=== PATIENT | male | born 1975 | race Caucasian/White ===

== ENCOUNTER 2023-01-29 17:24 | Emergency (ER) | payer BC, SELFPAY ==
[2023-01-29 17:30] VITALS: BP 162/104; PULSE 93; RESP 16; TEMP 36.9; O2SAT 99
--- NOTE | 2023-01-29 17:30 | DI.RAD_ITS ---
Exam(s) XR SHOULDER RT COMPLETE 2+V EXAM: XR SHOULDER RT COMPLETE 2+V CLINICAL HISTORY: shoulder injury, ac deformity. TECHNIQUE: 2D digital imaging was performed. Five views. COMPARISON: No exams were available for comparison FINDINGS: BONES: No acute fracture is present. No bony destructive lesion is seen. JOINTS: Distal clavicle projects superior to the acromion, indicating acromioclavicular joint separat ion. Glenohumeral joint is intact. Widening of the coracoacromial distance. SOFT TISSUE: Normal. IMPRESSION: Acromioclavicular joint separation. DATA REPOSITORY: RADIATION DOSE DELIVERED:
--- NOTE | 2023-01-29 17:35 | W.ED.GENAD ---
Discharge Plan Disposition Patient Disposition: Home Discharge Details Clinical Impression: Acromioclavicular joint separation, type 3 ED Provider: Kelsea Zafar Home Meds and New Rx's Prescriptions: New oxycodone 5 mg capsule 5 mg PO Q6H PRNQty: 10 0RF Continued [place]'s wort 300 mg Tablet 300 mg PO DAILY Discharge Instructions Additional Instructions: Take ibuprofen 600 mg every 8 hours with food Take Tylenol 650 mg every 4-6 hours If you need prescription for oxycodone, this is addictive, use sparingly Do not operate your vehicle for 8 hours after taking this medication Wear your sling Limit use of your right shoulder Monitor the skin for any signs of bruising and be reassessed if you notice this, should you develop strength or sensation change, worsening pain, or with any new or progressing symptoms return immediately Call orthopedics tomorrow if you do not hear from them the day to schedule appointment Stand Alone Forms: Work Release Referrals: Orville Lanier MD [ [facility] STAFF PHYSICIAN] - Medical Decision Making 47-year-old male with ski injury, isolated right shoulder injury X-ray was ordered for further evaluation which shows a grade 3 AC joint separation, mild tenting of the skin, no ecchymosis over area, no open fracture, neurovascularly intact, no additional evidence of trauma, fully alert and oriented Case discussed with Dr. Lanier, will see patient in close outpatient setting Placed in sling and placed on follow-up list Remains neurovascularly intact Small amount of oxycodone supplied Work note supplied Return precautions reviewed in detail including immediate return with skin discoloration Medical Records Medical records reviewed: Yes I reviewed the patient's medical records. Lab Data Lab results reviewed: Yes I reviewed the patient's lab results. HPI General Date/Time Provider Initiated Documentation: 01/29/23 17:30. HPI Narrative: This 47-year-old gentleman presents after skiing accident with pain to his right shoulder. He states he slipped and fell while skiing, landing against several small trees which he hit the top of the shoulder. He is concerned he may have dislocated his shoulder. He has brought down by EMS. He adamantly denies any head injury or loss of consciousness. He denies cracked helmet. He denies any neck pain, back pain, or chest pain. He denies any lower extremity pain. Denies any shortness of breath. Related Data Home Medications Medication Instructions Recorded Confirmed [place]'s wort 300 mg tablet 300 mg PO DAILY 01/29/23 01/29/23 oxycodone 5 mg capsule 5 mg PO Q6H PRN #10 caps 01/29/23 Previous Rx's Medication Instructions Recorded oxycodone 5 mg capsule 5 mg PO Q6H PRN #10 caps 01/29/23 Allergies Allergy/AdvReac Type Severity Reaction Status Date / Time Iodinated Contrast Media Allergy Severe Itching Verified 01/29/23 17:35 General Stated Complaint: Orthopedic ALTAGRACIA: 3 PFSH All Active Problems (Updated 01/29/23 @ 18:28 by HILTON Delarosa) Acromioclavicular joint separation, type 3 (Acute) Ventral hernia (Acute) Umbilical hernia (Acute) Medical History Fibula fracture Kidney stones Surgical History H/O arthroscopy of knee H/O lithotripsy S/P laparotomy S/P small bowel resection Social History Smoking risk assessment performed?: No Exam Const General: cooperative, comfortable and no acute distress Orientation: alert and oriented x3 HENMT Head: normal to inspection Other: No visible sign of trauma, uvula midline Eyes Pupils: PERRL Neck Other: no midline tenderness or visible evidence of trauma Chest Chest: normal inspection of the chest Other: No visible evidence of trauma Chest/axillae images: 1. Deformity noted, no skin discoloration, no open fracture Resp Effort & Inspection: normal respiratory effort Auscultation: clear to auscultation bilaterally Cardio Rate: regular rate Rhythm: regular rhythm GI Inspection: normal to inspection Auscultation: normal bowel sounds Back/Spine/Pelvis Back: no CVA tenderness Other: No midline tenderness Skin General skin exam: no rashes or lesions noted Neuro General: patient alert and patient oriented x3 Other: GCS 15 Extrem Other: Neurovascularly intact Course Vital Signs Vital signs: Vital Signs Temperature 36.9 C 01/29/23 17:30 Pulse 93 H 01/29/23 17:30 Respiratory Rate 16 01/29/23 17:30 Blood Pressure 162/104 H 01/29/23 17:30 Pulse Oximetry 99 01/29/23 17:30 Temperature 36.9 C 01/29/23 17:30 Temperature Source Oral 01/29/23 17:30 Pulse 93 H 01/29/23 17:30 Respiratory Rate 16 01/29/23 17:30 Blood Pressure 162/104 H 01/29/23 17:30 Blood Pressure Position Sitting 01/29/23 17:30 Pulse Oximetry 99 01/29/23 17:30 Oxygen Delivery Method Room Air 01/29/23 17:30 Oxygen Flow Rate 0 01/29/23 17:30 Pain Level 2 01/29/23 17:30 Comment will see counselor on friday denies pain medication 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
--- NOTE | 2023-01-29 18:15 | DI.VRAD_ITS ---
PROCEDURE INFORMATION: Exam: XR Right Shoulder Exam date and time: 01/29/2023 5:53 PM Age: 47 years old Clinical indication: Injury or trauma; Other: Skiing fall; Other: Ac deformity; Injury date: 01/29/23 TECHNIQUE: Imaging protocol: Radiologic exam of the right shoulder. Views: 2 or more views. Internal and external rotation with transscapular images of the right shoulder. COMPARISON: No relevant prior studies available. FINDINGS: Bones/joints: Grade 3 right acromioclavicular joint separation. Tiny cysts of the ends of the acromioclavicular joints bones. Normal motion between the internal and external rotation images. No fracture or dislocation. Soft tissues: Unremarkable. IMPRESSION: Grade 3 right acromioclavicular joint separation. Dictated and Authenticated by: Casper Gonzalez MD. Ordering:DHIRAJ Enamorado MD
[2023-01-29 19:16] VITALS: BP 148/98; PULSE 78; RESP 20; O2SAT 96
== END 2023-01-29 19:18 | disposition home or self-care (01) ==
LOC: ER 19:23
PROVIDERS: Emergency Provider Physician Assistant
DX: S43.101A Unspecified dislocation of right acromioclavicular joint, initial encounter (principal); V00.321A Fall from snow-skis, initial encounter
CPT/HCPCS: 99283; 73030; 99284

== ENCOUNTER 2023-02-05 10:10 | Outpatient (CLI) | payer BC, SELFPAY ==
--- NOTE | 2023-02-05 09:30 | DI.RAD_ITS ---
Exam(s) XR CLAVICLE RT EXAM: XR CLAVICLE RT CLINICAL HISTORY: RIGHT CLAVICLE F/U TECHNIQUE: 2D digital imaging was performed of the right clavicle. Two images were obtained. AP and axial views were obtained. COMPARISON: CR,XR XR SHOULDER RT COMPLETE 2+V from 01/29/2023 FINDINGS: BONES: No acute fracture is present. No bony destructive lesion is seen. JOINTS: There is again seen a grade 3 right acromioclavicular joint separation. SOFT TISSUE: Normal IMPRESSION: Stable right AC joint separation. DATA REPOSITORY: RADIATION DOSE DELIVERED:
== END 2023-02-05 10:11 | disposition home or self-care (01) ==
LOC: DIORS 10:10
PROVIDERS: Visit Provider Student in an Organized Health Care Education/Training Program
DX: S43.081D Other subluxation of right shoulder joint, subsequent encounter; X58.XXXD Exposure to other specified factors, subsequent encounter
CPT/HCPCS: 73000

== ENCOUNTER 2025-06-01 10:06 | Outpatient (CLI) | payer BC, SELFPAY ==
--- NOTE | 2025-06-01 09:15 | DI.RAD_ITS ---
Exam(s) XR KNEE RT 3V AP,LAT,SHREYAS EXAM: XR KNEE RT 3V AP,LAT,SHREYAS CLINICAL HISTORY: RIGHT KNEE PAIN. TECHNIQUE: 2D digital imaging was performed of the right knee. Three views obtained. Merchant, AP and lateral views were obtained. COMPARISON: No exams were available for comparison FINDINGS: BONES: No acute fracture is present. No bony destructive lesion is seen. JOINTS: Degenerative changes are seen in all 3 joint compartments characterized by joint space narrowing and osteophytes. The findings are most marked in the lateral femoral tibial joint. There is chondrocalcinosis seen in the femoral tibial joint. There is a joint effusion present. SOFT TISSUE: Normal. IMPRESSION: 1. [id number] osteoarthritis of the right knee. 2. Small joint effusion. DATA REPOSITORY: RADIATION DOSE DELIVERED:
== END 2025-06-01 10:07 | disposition home or self-care (01) ==
LOC: DIORS 10:06
PROVIDERS: Visit Provider Student in an Organized Health Care Education/Training Program
DX: M25.561 Pain in right knee (principal); M17.11 Unilateral primary osteoarthritis, right knee; M25.461 Effusion, right knee
CPT/HCPCS: 73562

== ENCOUNTER 2025-07-19 16:01 | Outpatient (CLI) | payer BC, SELFPAY ==
[2025-07-20 11:38] LABS: Lyme Ab w Rflx to Lyme Confirm Negative (Negative)
[2025-07-21 17:46] LABS: B. miyamotoi PCR Negative (Negative); Babesia divergens/MO-1 Negative (Negative); Ehrlichia muris eauclairensis Negative (Negative)
== END 2025-07-19 16:02 | disposition home or self-care (01) ==
LOC: LBO 16:02
PROVIDERS: Visit Provider Student in an Organized Health Care Education/Training Program
DX: M25.461 Effusion, right knee (principal); M17.11 Unilateral primary osteoarthritis, right knee
CPT/HCPCS: 36415; 87798; 86618

== ENCOUNTER 2025-09-07 16:19 | Emergency (ER) | payer BC, SELFPAY ==
[2025-09-07] VITALS (39 sets, daily range): BP systolic 132–160; BP diastolic 90–113; PULSE 71–95; RESP 4–28; O2SAT 93–100
--- NOTE | 2025-09-07 16:15 | RT.EKG_ITS ---
APPROVED REPORT Exam: Resting ECG Reason for Exam: Chest Pain Patient Location: E HR:82 bpm ECG Measurements Heart Rate 82 AXIS VA 152 P 57 QRSd 108 QRS 91 QT 369 T -26 QTc 431 Conclusion Sinus rhythm, rate 82 No interval abnormalities Borderline <1mm elevation V1, V2, with T wave inversion III, aVF. No priors available for comparison
--- NOTE | 2025-09-07 16:15 | DI.RAD_ITS ---
Exam(s) XR CHEST 2V PA LATERAL EXAM: XR CHEST 2V PA LATERAL CLINICAL HISTORY: Chest pain TECHNIQUE: 2D digital imaging was performed. Two views. COMPARISON: No exams were available for comparison FINDINGS: HEART: Normal size. Aorta: Not dilated. PULMONARY VASCULATURE: Normal. MEDIASTINUM: Unremarkable. LUNGS: Clear. PLEURAL SPACE: No pleural effusion or pneumothorax. BONE:Unremarkable for age. SOFT TISSUES: Unremarkable. IMPRESSION: No acute abnormality. DATA REPOSITORY: RADIATION DOSE DELIVERED:
[2025-09-07 16:34] LABS: Abs Immature Grans 0.02 10^3/uL (0.0-0.06); HCT 46.4 % (40.0-50.0); HGB 16.1 g/dL (13.5-17.5); Immature Grans % 0.3 %; MCH 29.4 pg (27.0-33.0); MCHC 34.7 % (32.0-36.0); MCV 85 fL (80-95); MPV 10.4 fL (8.0-11.0); Platelet Count 179 10^3/uL (130-400); RBC 5.48 10^6/uL (4.36-5.78); RDW 11.6 % (11.8-14.1); RDW-SD 35.5 fL; WBC 5.94 10^3/uL (4.4-10.8)
--- NOTE | 2025-09-07 16:39 | NUR.NOTE ---
Nursing Note: PT reported to this RN he had has dark stool for 3 days-
[2025-09-07 16:48] LABS: INR 1.0 (0.9-1.1); PTT Activated 24.5 sec (20.6-30.2); Prothrombin Time 10.0 sec (9.1-11.1)
[2025-09-07 17:00] LABS: ALT 50 U/L (16-63); AST 31 U/L (15-37); Albumin 4.4 g/dL (3.4-5.0); Alkaline Phosphatase 85 U/L (46-116); Anion Gap 11.0 mmol/L (3-11); BUN 22 mg/dL (7-18); Bilirubin, Total 0.9 mg/dL (0.2-1.0); CO2 29.0 mmol/L (21.0-32.0); Calcium 9.5 mg/dL (8.5-10.1); Chloride 99 mmol/L (98-107); Estimated GFR 74.13 (mL/min/1.73m2); Glucose 85 mg/dL (74-106); Lipase 62 U/L (<78); Magnesium 2.1 mg/dL (1.8-2.4); NT-proBNP 6 pg/mL (<300); Potassium 3.7 mmol/L (3.5-5.1); Sodium 139 mmol/L (136-145); Total Protein 8.4 g/dL (6.4-8.2)
[2025-09-07 17:01] LABS: Troponin I < 4 ng/L (<or=76)
--- NOTE | 2025-09-07 17:09 | ED.GENADUL_ITS ---
Discharge Plan Disposition Patient Disposition: Home Condition: Stable Discharge Details Clinical Impression: Chest pain, Pericardial effusion Primary Care Provider: Savage Tobin ED Provider: Sonia Nick Home Meds and New Rx's Prescriptions: New colchicine 0.6 mg tablet 0.6 mg PO BID 30 Days Qty: 60 0RF No Action lisinopril 20 mg tablet 10 mg PO DAILY celecoxib 200 mg capsule See Rx Instructions .ROUTE .COMPLEX Qty: 90 0RF Dose Instruction: TAKE ONE CAPSULE BY MOUTH EVERY DAY NEEDED FOR PAIN Rx Instructions: TAKE ONE CAPSULE BY MOUTH EVERY DAY NEEDED FOR PAIN Discharge Instructions Instructions: Chest Pain, Adult ED Additional Instructions: You were seen in the emergency department today for evaluation of chest pain. In our department he had a full physical examination performed, and had an EKG that showed some changes that were concerning. However, you had negative cardiac enzymes and otherwise reassuring laboratory studies. Your chest x-ray was negative. We did discuss your case with the metal spraying machine operator at [facility], who recommend trialing treatment for pericarditis given the small amount of fluid noted around your heart. You will continue to take your celecoxib as prescribed, we will trial colchicine monotherapy, which is a medication that you take twice per day. Your primary care provider should continue this medication for up to 3 months unless an alternative cause of your chest pain is discovered. You need to follow-up with your primary care provider at your scheduled appointment, and they need to refer you to undergo formal echocardiography, as well as a stress test. If you have any changes or worsening of your chest pain you should return to the emergency department immediately for reevaluation. Please follow-up with your primary care provider in the next few days to discuss this visit and any symptoms that change, worsen, or persist. Thank you for allowing us to be part of your care. Stand Alone Forms: Work Release HPI General Mode of arrival: EMS . Date/Time Provider Initiated Documentation: 09/07/25 16:25 . Limitations to Documentation: no limitations . Information obtained by: patient, EMS and old records reviewed . HPI Narrative: This is a 50-year-old male patient with a history of hypertension is presenting for evaluation of chest pain. The chest pain started on Friday, the patient did have a very active weekend and was moving heavy objects, pain is located in the left anterior chest, does not radiate, is worse with movement and deep breath/cough. He had not tried any medications over the weekend for management of symptoms. 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 He received aspirin, nitro without significant improvement, and was transported to our facility for further evaluation. The patient reports that his pain has not abated, though it is not as bothersome as long as he is still and sitting. He denies associated nausea, shortness of breath, diaphoresis, and has not had symptoms like this before. Related Data Home Medications ?Medication ?Instructions ?Recorded ?Confirmed lisinopril 20 mg tablet 10 mg PO DAILY 06/01/2508/18 celecoxib 200 mg capsule See Rx Instructions .Route 1 09/07/25 .COMPLEX #90 caps colchicine 0.6 mg tablet 0.6 mg PO BID 30 days #60 ta bs 09/07/25 Previous Rx's ?Medication ?Instructions ?Recorded celecoxib 200 mg capsule See Rx Instructions .Route 1 .COMPLEX #90 caps colchicine 0.6 mg tablet 0.6 mg PO BID 30 days #60 ta bs 09/07/25 Allergies Allergy/AdvReac Type Severity Reaction Status Date / Time Iodinated Contrast Media Allergy Severe Itching Verified 09/07/25 16:30 General Stated Complaint: Chest Pain ALTAGRACIA: 3 Exam Narrative Exam Narrative: Gen: Awake and alert, in no apparent distress HEENT: Non-icteric sclera Neck: Supple Lungs: No apparent respiratory distress, normal respiratory effort. Lung sounds clear and equal bilaterally without wheezing, rhonchi, rales CV: Appears well perfused, heart with regular rate and rhythm, strong distal pulses, no crepitus, deformity, or skin changes overlying the area of pain Abdomen: Non-distended, soft MSK: Moves 4 extremities without apparent limitation in ROM. No peripheral edema Skin: Visualized skin without rashes, cyanosis. Neuro: Normal Gait, no obvious focal deficits or facial asymmetry. Speaks in full, clear sentences. Psych: Appropriate for situation. Course Vital Signs Vital signs: Vital Signs Pulse 81 09/07/25 16:22 Respiratory Rate 18 09/07/25 16:22 Pulse Oximetry 97 09/07/25 16:22 Pulse 81 09/07/25 16:22 Respiratory Rate 18 09/07/25 16:34 Respiratory Effort Normal, Non-Labored 09/07/25 16:34 Respiratory Depth Normal 09/07/25 16:34 Respiratory Pattern Normal 09/07/25 16:34 Pulse Oximetry 97 09/07/25 16:22 Lab/Test Results Lab/Test Results: Laboratory Tests Range/Units 09/07/25 16:10 WBC (4.4-10.8) 10^3/uL 5.94 RBC (4.36-5.78) 10^6/uL 5.48 Hgb (13.5-17.5) g/dL 16.1 Hct (40.0-50.0) % 46.4 MCV (80-95) fL 85 MCH (27.0-33.0) pg 29.4 MCHC (32.0-36.0) % 34.7 RDW (11.8-14.1) % 11.6 L Plt Count (130-400) 10^3/uL 179 MPV (8.0-11.0) fL 10.4 Immature Gran % % 0.3 Neutrophils % % 52.5 Lymphocytes % % 32.2 Monocytes % % 11.8 Eosinophils % % 2.7 Basophils % % 0.5 Nucleated RBC % (0.0-0.3) % 0.0 Absolute Neutrophils (1.2-6.7) 10^3/uL 3.12 Absolute Lymphocytes (1.2-3.4) 10^3/uL 1.91 Absolute Monocytes (0.1-0.8) 10^3/uL 0.70 Absolute Eosinophils (0.0-0.7) 10^3/uL 0.16 Absolute Basophils (0.0-0.2) 10^3/uL 0.03 PT (9.1-11.1) sec 10.0 INR (0.9-1.1) 1.0 APTT (20.6-30.2) sec 24.5 Sodium (136-145) mmol/L 139 Potassium (3.5-5.1) mmol/L 3.7 Chloride (98-107) mmol/L 99 Carbon Dioxide (21.0-32.0) mmol/L 29.0 Anion Gap (3-11) mmol/L 11.0 BUN (7-18) mg/dL 22 H Creatinine (0.70-1.30) mg/dL 1.2 Est GFR (CKD-EPI 2020) (mL/min/1.73m2) 74.13 Glucose (74-106) mg/dL 85 Calcium (8.5-10.1) mg/dL 9.5 Magnesium (1.8-2.4) mg/dL 2.1 Total Bilirubin (0.2-1.0) mg/dL 0.9 AST (15-37) U/L 31 ALT (16-63) U/L 50 Alkaline Phosphatase (46-116) U/L 85 Troponin I (<or=76) ng/L < 4 NT-Pro-B Natriuret Pep (<300) pg/mL 6 Total Protein (6.4-8.2) g/dL 8.4 H Albumin (3.4-5.0) g/dL 4.4 Lipase (<78) U/L 62 Medical Decision Making This is a 50-year-old male patient presenting for evaluation of chest pain. My differential includes but is not limited to ACS including STEMI, NSTEMI, unstable angina, certainly considered arrhythmia, pericarditis/myocarditis, aortic pathology. Considered pulmonary abnormalities including pneumonia, bronchitis, pleural effusion, pulmonary edema, reactive airway disease, pneumothorax. The patient is without tachycardia, hypoxia, but the reproduction of pain with cough and deep breath does increase my concern for pulmonary embolism. No GI symptoms or vomiting to suggest Boerhaave's, esophagitis, peptic ulcer disease, pancreatitis. Considered musculoskeletal pathologies including costochondritis, chest wall pain. EKG obtained, which shows a normal sinus rhythm with a rate of 82, with 1 mm of elevation in V1 and V2, with associated T wave inversions in lead III and aVF. While this does not truly meet criteria for STEMI activation, it is quite concerning for active ischemia, and unfortunately we have no priors available for comparison other than the EMS EKG. Compared to that I do not note any dynamic ischemic change. Will obtain labs to include CBC, CMP, magnesium, troponin, D-dimer, and coags. Will obtain a chest x-ray. The patient's chest pain did not significantly improve with nitroglycerin and he did develop a mild headache and we will hold on further doses at this time. - I independently interpreted the laboratory studies, which show no significant leukocytosis, anemia, or thrombocytopenia. The chemistry panel is without evidence of electrolyte abnormality, kidney dysfunction, or liver injury. Coags normal, D-dimer is negative, and troponin is undetectable x 2 checks at 0 and 1 hours. BNP is quite low and the lipase is negative. X-ray was negative for focal findings that could explain the patient's symptoms. Given the concerning EKG changes I did reach out to cardiology who requested inflammatory markers which were obtained and were negative. A bedside ultrasound shows preserved ejection fraction, but a trace pericardial effusion versus epicardial fat pad was appreciated anteriorly. Cardiology was concern for pericarditis given the reproducibility of the patient's symptoms, and for this reason I will start him on colchicine. The patient already takes celecoxib and is hesitant to stop this medication given his significant MSK pain when he is not on it. I do not think this is unreasonable given the patient's largely low risk study, and brief review of literature regarding colchicine monotherapy reveals some promise without evidence of inferiority, though certainly the literature is all lacking and not definitive. He will require referral by his primary care provider to formal echo, stress testing, and cardiology. The patient received his first dose of colchicine today, we discussed return precautions, to include worsening chest pain, shortness of breath, difficulty taking his medications, and any other symptoms that cause him concern. At this time, the patient has had a full medical evaluation and is safe for discharge to home. They are hemodynamically stable, ambulatory, and tolerating PO. They are understanding of the follow-up plan and return precautions. They left our facility without incident. Sonia Nick MD [facility] All Active Problems (Updated 09/07/25 @ 19:27 by Sonia Nick MD) Pericardial effusion (Acute) Chest pain (Acute) Effusion of right knee joint (Acute) Arthritis of right knee (Acute) Separation of right acromioclavicular joint (Acute 01/29/23) Ventral hernia (Acute) Umbilical hernia (Acute) Medical History Fibula fracture Kidney stones Surgical History H/O arthroscopy of knee H/O lithotripsy S/P laparotomy S/P small bowel resection Social History Smoking/Tobacco Use Status: Never Smoking risk assessment performed?: Yes Alcohol Intake: current Alcohol Intake frequency: 0-2 drinks per day Drug use: Occasionally Substance use type: marijuana Current gender identity: male PAWSS Have you Been Recently Intoxicated or Drunk Within the Last 30 days?: No Have you Ever Experienced Previous Episodes of Alcohol Withdrawal?: No Have you ever Experienced Withdrawal Seizures?: No Have you ever Experienced Delirium Tremens(DT)s?: No Have you ever undergone Alcohol Rehabilitation Treatment (i.e, inpt ot outpatient treatment programs)?: No Have you ever Experienced Blackouts?: No Have you ever Combined Alcohol with other Downers within the last 90 days?: No Have you ever Combined Alcohol with any other Substance of Abuse during the last 90 days?: No Result: 0
[2025-09-07 17:47] LABS: Troponin I < 4 ng/L (<or=76)
[2025-09-07 18:17] LABS: D-Dimer 376 ng/mlFEU (<500)
[2025-09-07 19:11] LABS: ESR 4 mm/hr (0-15)
[2025-09-07 19:21] LABS: C-Reactive Protein < 0.50 mg/dL (<or=0.5)
[2025-09-07] MEDS: Colchicine 0.6 MG TAB PO ×2 (19:41)
== END 2025-09-07 19:47 | disposition home or self-care (01) ==
PROVIDERS: Emergency Provider Emergency Medicine; PCP Specialist/Technologist Athletic Trainer
DX: R07.9 Chest pain, unspecified (principal); I31.39 Other pericardial effusion (noninflammatory)
CPT/HCPCS: 36415; 80053; 83690; 85652; 93005; 99284; 71046; 83735; 83880; 84484; 85025; 85379; 85610; 85730; 86140; 93010